=== PATIENT | female | born 1950 | race Caucasian/White ===

== ENCOUNTER 2016-11-24 03:14 | Emergency (ER) | payer OTHER ==
--- NOTE | 2016-11-24 04:54 | ED NURSING NOTES ---
Clinical Report - Nurses [facility] [address] [place] [address] 11/24/2016 3:15 [id number] Triage time 0319 AM. Chief Complaint: HEADACHE and VOMITING. Alert. No acute distress. SHARON COMA SCORE: Sharon Coma Scale: 15- eyes open spontaneously (4); best verbal response- oriented x 4 (5); best motor response- obeys commands (6). --03:23 Bandar Adrian R.N. 03:19 11/24/16. BP: 136/71. HR: 81. RR: 18. O2 saturation: 95%. Temp: 98.2 F (oral). Pain level now: 07/06. --03:23 Bandar Adrian R.N. Acuity: LEVEL 3. --03:23 Bandar Adrian R.N. Weight: 58.9 kg stated. Height/Length: 61 inches Per Patient. BMI: 24.5. --03:22 Bandar Adrian R.N. Medications Calcium tablet 1 tablet BID. Glucosamine Oral (Capsule 500 mg) 2 capsules, Daily. Paxil Oral 20 mg, daily (Pt stopped taking it due to financial problem.). Pt stopped taking Blood pressure pills.. Topiramate Oral 40, daily. Vitamin D3 Oral (Tablet 1000 unit) 1 tablet. Vitamin E Oral (Capsule 100 unit) 1 capsule. --10:42 Margot Antony R.N. Allergies No Known Drug Allergy. --10:41 Margot Antony R.N. History Arrived by private vehicle. Historian: patient. Accompanied by family. This started last night. ( Patient presents to the ED with symptoms of a right sided headache localized behind her right eye. Patient describes the pain as the worst headache of her entire life. Patient states that she has a history of stroke and has experienced migraines every single day of her life since the stroke. Patient states that she tried to take Excedrin migraine without relief of headache.). PAST MEDICAL HX: Headaches. Immunizations: up-to-date. SOCIAL HX: Smoker- current status unknown (no). Alcohol use. (no). History of drug use. (no). SELF HARM ASSESSMENT: A self harm assessment was performed. The patient answered "no" to the question "Have you recently felt down, depressed, or hopeless?", "Have you noticed less interest or pleasure in doing things?", "Do you have thoughts of harming or killing yourself?", "Are you here because you tried to hurt yourself?", "Have you ever tried to hurt yourself before today?", "Have you recently had thoughts about harming or killing others?" and "Do you have any dangerous items in your possession?". FALL RISK ASSESSMENT: Fall risk assessment completed. No fall risk identified. NUTRITIONAL RISK ASSESSMENT: The nutritional risk assessment revealed no deficiencies. FUNCTIONAL ASSESSMENT: Functional assessment: no impairments noted. LEARNING NEEDS ASSESSMENT: The learning needs assessment revealed no barriers. SKIN INTEGRITY ASSESSMENT: Skin integrity risk assessment completed. No skin integrity risk identified. --03:23 Bandar Adrian R.N. PROBLEMS: CVA - Cerebrovascular Accident. Migraine Headache. Hypertension. --03:23 Bandar Adrian R.N. ADDITIONAL SURGERIES: Hysterectomy. Laparoscopy. Laparotomy. --03:23 Bandar Adrian R.N. Interventions ID band on patient. To treatment room. --03:23 Bandar Adrian R.N. PHYSICAL ASSESSMENT To room via stretcher. GENERAL / NEURO / PSYCH: Alert. Oriented X 4. Appears in no acute distress. Speech within normal limits. ( right sided headache beginning around 0245 am). HEENT: No facial asymmetry noted. Pupils equal, round and reactive to light. RESPIRATORY: Respirations not labored. Breath sounds within normal limits. CVS: Capillary refill less than 2 seconds. GI / : The patient has had nausea. Emesis noted. Abdomen soft and nontender. SKIN: Skin is warm and dry. --03:25 Bandar Adrian R.N. NURSING PROGRESS NOTES Reassurance given. Call light placed in reach. Side rails up x 2. Bed placed in lowest position. Brakes of bed on. --03:25 Bandar Adrian R.N. 03:34 11/24/2016 Site #1 started via IV in the left forearm with an 18g angiocath; one attempt. Blood drawn: rainbow set. Labeled in the presence of the patient and held. Saline lock flushed with 10 mL saline. --03:34 Bandar Adrian R.N. 03:34 11/24/2016 Started IV Fluids IV NS (Saline); bolus of 1000 mL wide open via site #1 via IV pump. Allergies verified. IV patency established. IV site checked: no pain, redness, or swelling. IV flushed thoroughly pre- and post-medication administration. --03:34 Bandar Adrian R.N. 03:34 11/24/2016 Toradol IVP 30 mg given over 2 minute(s) via site #1. Allergies verified and confirmed 5 rights. IV patency established. IV site checked: no pain, redness, or swelling. IV flushed thoroughly pre- and post-medication administration. IVP given by RN. --03:34 Bandar Adrian R.N. 03:35 11/24/2016 Benadryl (DiphenhydrAMINE HCl) IVP 25 mg given over 2 minute(s) via site #1. Allergies verified, confirmed 5 rights and sedative warning given to the patient. IV patency established. IV site checked: no pain, redness, or swelling. IV flushed thoroughly pre- and post-medication administration. IVP given by RN. --03:35 Bandar Adrian R.N. 03:35 11/24/2016 Decadron IVP 10 mg given over 2 minute(s) via site #1. Allergies verified and confirmed 5 rights. IV patency established. IV site checked: no pain, redness, or swelling. IV flushed thoroughly pre- and post-medication administration. IVP given by RN. --03:36 Bandar Adrian R.N. 03:37 11/24/2016 PHENERGAN (Promethazine HCl) IVP 25 mg given over 5 minute(s) via site #1. Allergies verified and confirmed 5 rights. IV patency established. IV site checked: no pain, redness, or swelling. IV flushed thoroughly pre- and post-medication administration. IVP given by RN. --03:37 Bandar Adrian R.N. Reassurance given. Call light placed in reach. Side rails up x 2. --04:47 Bandar Adrian R.N. 04:46 11/24/16. BP: 127/67. HR: 82. RR: 16. O2 saturation: 100%. Pain level now: uncertain. Additional comments: patient is sleeping. --04:47 Bandar Adrian R.N. The patient is calm, resting quietly and sleeping. Overall patient status is improved- she states feels better. --06:47 Bandar Adrian R.N. 06:47 11/24/16. BP: 115/74. HR: 81. RR: 16. O2 saturation: 98%. Pain level now: 0/10. --06:47 Bandar Adrian R.N. DISPOSITION / DISCHARGE Condition at departure: improved. --05:42 Bandar Adrian R.N. 05:41 11/24/16. BP: 102/60 taken on the left arm, via an automated monitor, while lying. HR: 69. RR: 16. O2 saturation: 97%. Pain level now: 0/10. --05:42 Bandar Adrian R.N. 05:42 11/24/2016 Toradol IVP Response: no adverse reaction pain is gone now. Symptoms have improved the patient feels better. --05:42 Bandar Adrian R.N. 05:42 11/24/2016 Benadryl IVP Response: no adverse reaction pain is gone now. Symptoms have improved the patient feels better. --05:42 Bandar Adrian R.N. 05:42 11/24/2016 Decadron IVP Response: no adverse reaction pain is gone now. Symptoms have improved the patient feels better. --05:42 Bandar Adrian R.N. 05:43 11/24/2016 PHENERGAN IVP Response: no adverse reaction pain is gone now. Symptoms have improved the patient feels better. --05:43 Bandar Adrian R.N. Condition at departure: improved and stable. No learning barriers present. Discharge instructions provided and reviewed with the patient. Reviewed medication(s) side effects, precautions and dosing information. Prescription(s) given to the patient. Patient verbalized understanding. Written instructions provided in Polish. The patient was discharged by the physician. She was discharged home and accompanied by plumbing warehouse helper. She left the Emergency Department in a wheelchair and via private vehicle. Oil Filters Inspector driving. --10:40 Margot Antony R.N. 07:50 11/24/2016 Site #1 removed upon discharge. Catheter intact. Manual pressure and bandage applied. --10:41 Margot Antony R.N. Locked/Released at 11/24/2016 10:42 by Margot Antony R.N.
--- NOTE | 2016-11-24 04:54 | ED ORDER SUMMARY ---
..... Patient: GWEN ANTOINE OrderSheet [facility] VisitID: [id number] [address] [place] [address] 66y, F Registration Date/Time: 11/24/2016 ORDER SHEET Weight: 58.9 kg (stated) Allergies: No Known Drug Allergy GENERAL ORDERS: Pulse oximeter (03:11/24/2016 Elvis Chang) (3:39 HOShaughnessy R.N.) MEDICATION ORDERS: Phenergan IV 25 mg (HIGH ALERT MEDICATION, NOW) (03:11/24/2016 Elvis Chang) (3:37 HOShaughnessy R.N.) IV FLUIDS: IV NS : initial bolus 1000 mL (1000 mL/hr), then none - for X1 (NOW) (03:27 11/24/2016 Elvis Chang) (3:34 HOShaughnessy R.N.) Toradol IV 30 mg (NOW) (03:11/24/2016 Elvis Chang) (3:34 HOShaughnessy R.N.) Benadryl IV 25 mg (NOW) (03:11/24/2016 Elvis Chang) (3:35 HOShaughnessy R.N.) Decadron IV 10 mg (NOW) (03:11/24/2016 Elvis Chang) (3:36 HOShaughnessy R.N.) ORDER SHEET NOTES: [Electronically signed by Margot Antony R.N. (10:42 11/24/2016)] [Electronically signed by Rashid Pereira Dr. (01:13 12/01/2016)] [Electronically locked/signed by Margot Antony R.N. (10:42 11/24/2016)]
--- NOTE | 2016-11-24 04:54 | ED ORDER SUMMARY ---
..... Patient: GWEN ANTOINE OrderSheet [facility] VisitID: [id number] [address] [place] [address] 66y, F Registration Date/Time: 11/24/2016 ORDER SHEET Weight: 58.9 kg (stated) Allergies: No Known Drug Allergy GENERAL ORDERS: Pulse oximeter (03:11/24/2016 Elvis Chang) (3:39 HOShaughnessy R.N.) MEDICATION ORDERS: Phenergan IV 25 mg (HIGH ALERT MEDICATION, NOW) (03:11/24/2016 Elvis Chang) (3:37 HOShaughnessy R.N.) IV FLUIDS: IV NS : initial bolus 1000 mL (1000 mL/hr), then none - for X1 (NOW) (03:27 11/24/2016 Elvis Chang) (3:34 HOShaughnessy R.N.) Toradol IV 30 mg (NOW) (03:11/24/2016 Elvis Chang) (3:34 HOShaughnessy R.N.) Benadryl IV 25 mg (NOW) (03:11/24/2016 Elvis Chang) (3:35 HOShaughnessy R.N.) Decadron IV 10 mg (NOW) (03:11/24/2016 Elvis Chang) (3:36 HOShaughnessy R.N.) ORDER SHEET NOTES: [Electronically signed by Margot Antony R.N. (10:42 11/24/2016)] [Electronically signed by Rashid Pereira Dr. (01:13 12/01/2016)] [Electronically locked/signed by Margot Antony R.N. (10:42 11/24/2016)]
--- NOTE | 2016-11-24 04:54 | ED CLINICAL REPORT ---
Clinical Report - Physicians/Mid Levels [facility] [address] [place] [address] 11/24/2016 3:15 Patient: GWEN ANTOINE Arrived- By ambulance. Historian- patient. HISTORY OF PRESENT ILLNESS Is still present and worsening. Chief Complaint: HEADACHE. This started yesterday. It was gradual in onset and has been constant but is not gone now. Patient was last known well (yesterdays). Onset during rest. It is described as sharp. Located in the right temporal region and region of the right eye. No neck pain. Not located in the facial region. At its maximum, severity described as severe. When seen in the E.D., severity described as severe. Modifying factors: worsened by bright light; (usually OTC meds but that has not helped). Not worsened by noise. The patient has had nausea. No preceding symptoms, blurred vision, photophobia or vomiting. (states it got worse at 2:45 am today (>1 hour). Hx of CVA and right sided weakness. No new or worsening stroke symptoms.). No recent travel. Similar symptoms previously: None. ( hx of migraines but usually hurts all over). Recent medical care: Not recently seen/assessed. REVIEW OF SYSTEMS No fever, chest pain, difficulty breathing or skin rash. All systems otherwise negative, except as recorded above. PAST HISTORY See nurses notes. Medications: Calcium tablet 1 tablet BID. Glucosamine Oral (Capsule 500 mg) 2 capsules, Daily. Paxil Oral 20 mg, daily (Pt stopped taking it due to financial problem.). Pt stopped taking Blood pressure pills.. Topiramate Oral 40, daily. Vitamin D3 Oral (Tablet 1000 unit) 1 tablet. Vitamin E Oral (Capsule 100 unit) 1 capsule. Allergies: No Known Drug Allergy. SOCIAL HISTORY Never smoker. No alcohol use or drug use. No recent travel. Is a local resident. ADDITIONAL NOTES The nursing notes have been reviewed. PHYSICAL EXAM Vital Signs: 11/24/2016 03:19 BP: 136/71. HR: 81. RR: 18. O2 saturation: 95%. Temp: 98.2 F. Pain level now: 10/10. Blood pressure normal. Oxygen saturation normal. Appearance: Alert. Patient in mild distress. Eyes: Pupils equal, round and reactive to light. Eyes normal inspection. No conjunctival findings. (no papilledema. Normal retinal vasculature. Pupils are equally round and reactive to light at 3 mm. Extraocular ocular movements are intact without discomfort. No consensual photophobia). ENT: Ears normal. Nose normal. Pharynx normal. Neck: Normal inspection. Neck supple. No meningeal signs. CVS: Normal heart rate and rhythm. Heart sounds normal. Pulses normal. Respiratory: No respiratory distress. Breath sounds normal. Abdomen: Soft and nontender. No organomegaly. Skin: Skin warm and dry. Normal skin color. No rash. Normal skin turgor. Extremities: Extremities exhibit normal ROM. No lower extremity edema. Neuro: Oriented X 3. Alert. Mood/affect normal. Speech normal. Cranial nerves normal (as tested). No cerebellar findings. No motor deficit. No sensory deficit. Reflexes normal. PROGRESS AND PROCEDURES Course of Care: the patient is a pleasant 66-year-old female presenting for eval show right-sided headache. Patient has been having the headache for the past day. Patient reports worsening at around 245 this morning. Symptoms had worsened over the course of greater than 1 hour. Do not the patient has subarachnoid hemorrhage or more concerning symptoms. Evaluation does not show signs of increased intracranial pressure. exam is also not consistent with meningitis. No fever and no nuchal rigidity. Patient will be treated conservatively at this point in time with medications for her headache. Patient is agreeable to the treatment plan. medications have been provided. Patient reports significant improvement with her pain. I discussion with patient in regards to her workup here in the emergency department as well as diagnosis, home care, follow-up, and return precautions. All questions answered. The patient expressed understanding of these instructions and was agreeable to them. Do not fill patient is having a subarachnoid hemorrhage, meningitis, increased intracranial pressure, or CVA. Do not feel patient needs be admitted to the hospital or require further emergency department workup/evaluation. Disposition: Discharged. Condition: good. CLINICAL IMPRESSION Acute headache (acute right temporal/posterior orbital). INSTRUCTIONS Warnings: GENERAL WARNINGS: Return or contact your physician immediately if your condition worsens or changes unexpectedly, if not improving as expected, or if other problems arise. SPECIFICALLY, return if you develop fever, vomiting, numbness, weakness, difficulty thinking, visual disturbances, fainting or extreme fatigue. Prescription Medications: Zofran (orally disintegrating tablets) 4 mg: take 1 orally every 8 hours as needed for nausea and vomiting. Dispense ten (10). No refill. Substitution is permissible. Fioricet: take 1 orally every 8 hours as needed for pain or headache. Dispense twenty (20). No refills. Substitution is permissible. Follow-up: Return to the emergency department as needed. Follow up with your doctor in three days. Reason for referral: recheck today's concerns. Summary of care provided to patient via paper. Screening today revealed the patient's blood pressure to be in the normal range. The patient should follow up with a primary care provider for blood pressure management. Understanding of the discharge instructions verbalized by patient. (Electronically signed by Rashid Pereira Dr. 12/01/2016 1:13)
--- NOTE | 2016-12-01 01:13 | ED MAR SUMMARY ---
..... Medication Administration Record [facility] [address] [place] [address] Patient: GWEN ANTOINE Visit ID: [id number] 66y, F Weight: 58.9 kg Height/Length: 61 in BMI: 24.5 ALLERGIES: No Known Drug Allergy Start 03:34 11/24/2016 Bandar Adrian R.N. Medication Administered: IV NS (SALINE), Dose: IV Fluids, Bolus: 1000 mL wide open, Site: #1 left forearm. Medication Ordered: IV NS : initial bolus 1000 mL (1000 mL/hr), then none - for X1 (NOW). Given 03:34 11/24/2016 Bandar Adrian R.N. Medication Administered: TORADOL [IVP], Dose: 30 mg IVP over 2 minute(s), Site: #1 left forearm. Medication Ordered: Toradol IV 30 mg (NOW). Given 03:11/24/2016 Bandar Adrian R.N. Medication Administered: BENADRYL [IVP] (DIPHENHYDRAMINE HCL), Dose: 25 mg IVP over 2 minute(s), Site: #1 left forearm. Medication Ordered: Benadryl IV 25 mg (NOW). Given 03:11/24/2016 Banadr Adrian R.N. Medication Administered: DECADRON [IVP], Dose: 10 mg IVP over 2 minute(s), Site: #1 left forearm. Medication Ordered: Decadron IV 10 mg (NOW). Given 03:37 11/24/2016 Bandar Adrian R.N. Medication Administered: PHENERGAN [IVP] (PROMETHAZINE HCL), Dose: 25 mg IVP over 5 minute(s), Site: #1 left forearm. Medication Ordered: Phenergan IV 25 mg (HIGH ALERT MEDICATION, NOW).
--- NOTE | 2016-12-01 01:13 | ED DISCHARGE INSTRUCTIONS ---
Patient: GWEN ANTOINE General Instructions [facility] VisitID: [id number] [address] [place] [address] 66y, F Registration Date/Time: 11/24/2016 Acute headache (acute right temporal/posterior orbital). INSTRUCTIONS Warnings: GENERAL WARNINGS: Return or contact your physician immediately if your condition worsens or changes unexpectedly, if not improving as expected, or if other problems arise. SPECIFICALLY, return if you develop fever, vomiting, numbness, weakness, difficulty thinking, visual disturbances, fainting or extreme fatigue. Prescription Medications: Zofran (orally disintegrating tablets) 4 mg: take 1 orally every 8 hours as needed for nausea and vomiting. Dispense ten (10). No refill. Substitution is permissible. Fioricet: take 1 orally every 8 hours as needed for pain or headache. Dispense twenty (20). No refills. Substitution is permissible. Follow-up: Return to the emergency department as needed. Follow up with your doctor in three days. Reason for referral: recheck today's concerns. Summary of care provided to patient via paper. Screening today revealed the patient's blood pressure to be in the normal range. The patient should follow up with a primary care provider for blood pressure management. Understanding of the discharge instructions verbalized by patient. ADDITIONAL INFORMATION Headache [Unspecified] The cause of your headache today is not clear, but it does not appear to be the sign of any serious illness. Under stress, some people tense the muscles of their shoulder, neck and scalp without knowing it. If this condition lasts long enough, a TENSION HEADACHE can occur. A MIGRAINE HEADACHE is caused by changes in blood flow to the brain. A migraine attack may be triggered by emotional stress, hormone changes during the menstrual cycle, oral contraceptives, alcohol use, certain foods containing tyramine, eye strain, weather changes, missing meals, lack of sleep or oversleeping. Other causes of headache include a viral illness with high fever, head injury with concussion, sinus, ear or throat infection, dental pain and TMJ (jaw joint) pain. More serious but less common causes of headache include stroke, brain hemorrhage, brain tumor, meningitis and encephalitis. Home Care: If you were given pain medicine for this headache, do not drive yourself home. Arrange for a ride, instead. When you get home, try to sleep. You should feel much better when you wake up. Apply heat to the back of your neck to relieve neck muscle spasm. Migraine headaches may respond best to an ice pack on the forehead or at the base of the skull. If you are having nausea or vomiting, follow a light diet until your headache is relieved. If you have a migraine type headache, use sunglasses when in the daylight or around bright indoor lighting until symptoms improve. Bright glaring light can worsen this kind of headache. Follow Up with your doctor if the headache is not better within the next 24 hours. If you have frequent headaches you should discuss a treatment plan with your primary care doctor. By being aware of the earliest signs of headache, and starting treatment right away, you may be able to stop the pain yourself. Get Prompt Medical Attention if any of the following occur: Worsening of your head pain or no improvement within 24 hours Repeated vomiting (unable to keep liquids down) Fever of 100.4F (38C) or higher, or as directed by your healthcare provider Stiff neck Extreme drowsiness, confusion or fainting Dizziness, vertigo (dizziness with spinning sensation) Weakness of an arm or leg or one side of the face Difficulty with speech or vision Ondansetron Oral disintegrating tablet What is this medicine? ONDANSETRON (on ISABEL se mehdi) is used to treat nausea and vomiting caused by chemotherapy. It is also used to prevent or treat nausea and vomiting after surgery. How should I use this medicine? These tablets are made to dissolve in the mouth. Do not try to push the tablet through the foil backing. With dry hands, peel away the foil backing and gently remove the tablet. Place the tablet in the mouth and allow it to dissolve, then swallow. While you may take these tablets with water, it is not necessary to do so. Talk to your cuprous chloride operator regarding the use of this medicine in children. Special care may be needed. What side effects may I notice from receiving this medicine? Side effects that you should report to your doctor or health animal care assistant as soon as possible: allergic reactions like skin rash, itching or hives, swelling of the face, lips, or tongue breathing problems dizziness fast or irregular heartbeat feeling faint or lightheaded, falls fever and chills swelling of the hands and feet tightness in the chest Side effects that usually do not require medical attention (report to your doctor or health animal care assistant if they continue or are bothersome): constipation or diarrhea headache What may interact with this medicine? Do not take this medicine with any of the following medications: -apomorphine -cisapride -dofetilide -dronedarone -pimozide -thioridazine -ziprasidone This medicine may also interact with the following medications: -carbamazepine -phenytoin -rifampicin -tramadol -other medicines that prolong the QT interval (cause an abnormal heart rhythm) What if I miss a dose? If you miss a dose, take it as soon as you can. If it is almost time for your next dose, take only that dose. Do not take double or extra doses. Where should I keep my medicine? Keep out of the reach of children. Store between 2 and 30 degrees C (36 and 86 degrees F). Throw away any unused medicine after the expiration date. What should I tell my health care provider before I take this medicine? They need to know if you have any of these conditions: heart disease history of irregular heartbeat liver disease low levels of magnesium or potassium in the blood an unusual or allergic reaction to ondansetron, granisetron, other medicines, foods, dyes, or preservatives or trying to get breast-feeding What should I watch for while using this medicine? Check with your doctor or health animal care assistant as soon as you can if you have any sign of an allergic reaction. Butalbital, Acetaminophen, Caffeine Oral tablet What is this medicine? ACETAMINOPHEN; BUTALBITAL; CAFFEINE (a set a FENG alan fen; byoo ED bi ed; KAF een) is a pain reliever. It is used to treat tension headaches. How should I use this medicine? Take this medicine by mouth with a full glass of water. Follow the directions on the prescription label. If the medicine upsets your stomach, take the medicine with food or milk. Do not take more than you are told to take. Talk to your cuprous chloride operator regarding the use of this medicine in children. Special care may be needed. What side effects may I notice from receiving this medicine? Side effects that you should report to your doctor or health animal care assistant as soon as possible: allergic reactions like skin rash, itching or hives, swelling of the face, lips, or tongue breathing problems confusion feeling faint or lightheaded, falls redness, blistering, peeling or loosening of the skin, including inside the mouth seizure stomach pain yellowing of the eyes or skin Side effects that usually do not require medical attention (report to your doctor or health animal care assistant if they continue or are bothersome): constipation nausea, vomiting What may interact with this medicine? alcohol or medicines that contain alcohol antidepressants, especially MAOIs like isocarboxazid, phenelzine, tranylcypromine, and selegiline antihistamines benzodiazepines carbamazepine isoniazid medicines for pain like pentazocine, buprenorphine, butorphanol, nalbuphine, tramadol, and propoxyphene muscle relaxants naltrexone phenobarbital, phenytoin, and fosphenytoin phenothiazines like perphenazine, thioridazine, chlorpromazine, mesoridazine, fluphenazine, prochlorperazine, promazine, and trifluoperazine voriconazole What if I miss a dose? If you miss a dose, take it as soon as you can. If it is almost time for your next dose, take only that dose. Do not take double or extra doses. Where should I keep my medicine? Keep out of the reach of children. This medicine can be abused. Keep your medicine in a safe place to protect it from theft. Do not share this medicine with anyone. Selling or giving away this medicine is dangerous and against the law. Store at room temperature between 15 and 30 degrees C (59 and 86 degrees F). Keep container tightly closed. Protect from light. Throw away any unused medicine after the expiration date. What should I tell my health care provider before I take this medicine? They need to know if you have any of these conditions: drink more than 3 alcohol-containing drinks per day drug abuse or addiction heart or circulation problems kidney disease or problems going to the bathroom liver disease lung disease, asthma, or breathing problems porphyria an unusual or allergic reaction to acetaminophen, butalbital or other barbiturates, caffeine, other medicines, foods, dyes, or preservatives or trying to get breast-feeding What should I watch for while using this medicine? Tell your doctor or health animal care assistant if your pain does not go away, if it gets worse, or if you have new or a different type of pain. You may develop tolerance to the medicine. Tolerance means that you will need a higher dose of the medicine for pain relief. Tolerance is normal and is expected if you take the medicine for a long time. Do not suddenly stop taking your medicine because you may develop a severe reaction. Your body becomes used to the medicine. This does NOT mean you are addicted. Addiction is a behavior related to getting and using a drug for a non-medical reason. If you have pain, you have a medical reason to take pain medicine. Your doctor will tell you how much medicine to take. If your doctor wants you to stop the medicine, the dose will be slowly lowered over time to avoid any side effects. You may get drowsy or dizzy when you first start taking the medicine or change doses. Do not drive, use machinery, or do anything that may be dangerous until you know how the medicine affects you. Stand or sit up slowly. Do not take other medicines that contain acetaminophen with this medicine. Always read labels carefully. If you have questions, ask your doctor or pharmacist. If you take too much acetaminophen get medical help right away. Too much acetaminophen can be very dangerous and cause liver damage. Even if you do not have symptoms, it is important to get help right away. You have been given the following additional information: Headache, Unspecified Ondansetron Oral disintegrating tablet Butalbital, Acetaminophen, Caffeine Oral tablet (Electronically signed by Rashid Pereira Dr. 12/01/2016 1:13)
--- NOTE | 2016-12-01 01:13 | ED MED RECONCILIATION SUMMARY ---
Patient: GWEN ANTOINE Medication Reconciliation Report [facility] VisitID: [id number] [address] [place] [address] 66y, F Registration Date/Time: 11/24/2016 Weight: 58.9 kg Height/Length: 61 in. BMI: 24.5 ALLERGIES: No Known Drug Allergy The patient's Home Medications are listed below: THE FOLLOWING MEDICATIONS NEED TO BE RECONCILED: Calcium tablet 1 tablet BID Glucosamine Oral (500 mg) 2 capsules, Daily Paxil Oral 20 mg, daily, Pt stopped taking it due to financial problem. Pt stopped taking Blood pressure pills. Topiramate Oral 40, daily Vitamin D3 Oral (1000 unit) 1 tablet Vitamin E Oral (100 unit) 1 capsule The source(s) of the original Home Medication information: Not obtained. The following Medications were given to the patient in the Emergency Department: IV NS IV Fluids bolus 1000 mL wide open, administered: 11/24/2016 3:34:00 AM Toradol [IVP] IVP 30 mg, administered: 11/24/2016 3:34:00 AM Benadryl [IVP] IVP 25 mg, administered: 11/24/2016 3:35:00 AM Decadron [IVP] IVP 10 mg, administered: 11/24/2016 3:35:00 AM PHENERGAN [IVP] IVP 25 mg, administered: 11/24/2016 3:37:00 AM The following Medications were prescribed to the patient: Zofran (orally disintegrating tablets) 4 mg: take 1 orally every 8 hours as needed for nausea and vomiting. Dispense ten (10). No refill. Substitution is permissible. -- Rashid Pereira Dr. Fioricet: take 1 orally every 8 hours as needed for pain or headache. Dispense twenty (20). No refills. Substitution is permissible. -- Rashid Pereira Dr.
--- NOTE | 2016-12-01 01:13 | ED MAR SUMMARY ---
..... Medication Administration Record [facility] [address] [place] [address] Patient: GWEN ANTOINE Visit ID: [id number] 66y, F Weight: 58.9 kg Height/Length: 61 in BMI: 24.5 ALLERGIES: No Known Drug Allergy Start 03:34 11/24/2016 Bandar Adrian R.N. Medication Administered: IV NS (SALINE), Dose: IV Fluids, Bolus: 1000 mL wide open, Site: #1 left forearm. Medication Ordered: IV NS : initial bolus 1000 mL (1000 mL/hr), then none - for X1 (NOW). Given 03:34 11/24/2016 Bandar Adrian R.N. Medication Administered: TORADOL [IVP], Dose: 30 mg IVP over 2 minute(s), Site: #1 left forearm. Medication Ordered: Toradol IV 30 mg (NOW). Given 03:11/24/2016 Bandar Adrian R.N. Medication Administered: BENADRYL [IVP] (DIPHENHYDRAMINE HCL), Dose: 25 mg IVP over 2 minute(s), Site: #1 left forearm. Medication Ordered: Benadryl IV 25 mg (NOW). Given 03:11/24/2016 Bandar Adrian R.N. Medication Administered: DECADRON [IVP], Dose: 10 mg IVP over 2 minute(s), Site: #1 left forearm. Medication Ordered: Decadron IV 10 mg (NOW). Given 03:37 11/24/2016 Bandar Adrian R.N. Medication Administered: PHENERGAN [IVP] (PROMETHAZINE HCL), Dose: 25 mg IVP over 5 minute(s), Site: #1 left forearm. Medication Ordered: Phenergan IV 25 mg (HIGH ALERT MEDICATION, NOW).
--- NOTE | 2016-12-01 01:13 | ED MED RECONCILIATION SUMMARY ---
Patient: GWEN ANTOINE Medication Reconciliation Report [facility] VisitID: [id number] [address] [place] [address] 66y, F Registration Date/Time: 11/24/2016 Weight: 58.9 kg Height/Length: 61 in. BMI: 24.5 ALLERGIES: No Known Drug Allergy The patient's Home Medications are listed below: THE FOLLOWING MEDICATIONS NEED TO BE RECONCILED: Calcium tablet 1 tablet BID Glucosamine Oral (500 mg) 2 capsules, Daily Paxil Oral 20 mg, daily, Pt stopped taking it due to financial problem. Pt stopped taking Blood pressure pills. Topiramate Oral 40, daily Vitamin D3 Oral (1000 unit) 1 tablet Vitamin E Oral (100 unit) 1 capsule The source(s) of the original Home Medication information: Not obtained. The following Medications were given to the patient in the Emergency Department: IV NS IV Fluids bolus 1000 mL wide open, administered: 11/24/2016 3:34:00 AM Toradol [IVP] IVP 30 mg, administered: 11/24/2016 3:34:00 AM Benadryl [IVP] IVP 25 mg, administered: 11/24/2016 3:35:00 AM Decadron [IVP] IVP 10 mg, administered: 11/24/2016 3:35:00 AM PHENERGAN [IVP] IVP 25 mg, administered: 11/24/2016 3:37:00 AM The following Medications were prescribed to the patient: Zofran (orally disintegrating tablets) 4 mg: take 1 orally every 8 hours as needed for nausea and vomiting. Dispense ten (10). No refill. Substitution is permissible. -- Rashid Pereira Dr. Fioricet: take 1 orally every 8 hours as needed for pain or headache. Dispense twenty (20). No refills. Substitution is permissible. -- Rashid Pereira Dr.
== END 2016-11-24 08:00 | disposition home or self-care (01) ==
LOC: ED SRH 03:14
DX: R51 Headache (principal); I69.351 Hemiplegia and hemiparesis following cerebral infarction affecting right dominant side; I10 Essential (primary) hypertension

== ENCOUNTER 2017-01-15 14:14 | Emergency (ER) | payer OTHER ==
--- NOTE | 2017-01-15 14:37 | DIAGNOSTIC IMAGING REPORT ---
PROCEDURE: CT HEAD WITHOUT CONTRAST INDICATION: Right sided headache and slurred speech, initial encounter TECHNIQUE: Noncontrast axial images with sagittal and coronal reformations. COMPARISON: None. FINDINGS: Normal sulci and ventricular system. Old left carrington radiata infarct extending inferiorly into the left internal capsule posterior limb and left basal ganglia. No evidence of an acute CVA, hemorrhage, mass or midline shift. Mild right maxillary sinus disease. Mastoids are clear. IMPRESSION: 1. No acute intracranial abnormality 2. 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 Findings discussed with Dr. Richards at 02:33 p.m.[facility] Standard Time
--- NOTE | 2017-01-15 14:37 | DIAGNOSTIC IMAGING REPORT ---
PROCEDURE: CT HEAD WITHOUT CONTRAST INDICATION: Right sided headache and slurred speech, initial encounter TECHNIQUE: Noncontrast axial images with sagittal and coronal reformations. COMPARISON: None. FINDINGS: Normal sulci and ventricular system. Old left carrington radiata infarct extending inferiorly into the left internal capsule posterior limb and left basal ganglia. No evidence of an acute CVA, hemorrhage, mass or midline shift. Mild right maxillary sinus disease. Mastoids are clear. IMPRESSION: 1. No acute intracranial abnormality 2. 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 Findings discussed with Dr. Richards at 02:33 p.m.[facility] Standard Time
--- NOTE | 2017-01-15 16:01 | DIAGNOSTIC IMAGING REPORT ---
PROCEDURE: XR CHEST 1 VIEW INDICATION: CVA CA WITH METS TECHNIQUE: Portable AP view 02:35 p.m. COMPARISON: CT thorax 08/08/2014. FINDINGS: Previously noted right upper lobe lung mass is no longer present. Lungs are clear. Heart and mediastinum are normal. Thorax is normal. IMPRESSION: 1. Negative chest.
--- NOTE | 2017-01-15 16:23 | ED NURSING NOTES ---
Clinical Report - Nurses [facility] [address] [place] [address] 01/15/2017 14:14 [id number] TRI[facility] Triage time 1415. Acuity: LEVEL 2. Chief Complaint: IMPAIRED SPEECH and "FELT STRANGE". Alert. SHARON COMA SCORE: Sharon Coma Scale: 15- eyes open spontaneously (4); best verbal response- oriented x 4 (5); best motor response- obeys commands (6). --14:33 Shahla Hu 14:19 01/15/17. BP: 119/54. HR: 77. RR: 16. O2 saturation: 98%. Temp: 97.6 F. --14:33 Shahla Hu. Weight: 52.6 kg. Height/Length: 62 inches. BMI: 21.2. --14:19 Shahla Hu. Medications Aspirin Oral. --14:21 Shahla Hu Atorvastatin Calcium Oral. --14:21 Shahla Hu Lisinopril Oral. --14:21 Shahla Hu PARoxetine HCl Oral. --14:21 Shahla Hu FentaNYL Transdermal. --14:22 Shahla Hu Haloperidol Oral. --14:22 Shahla Hu Hyoscyamine Sulfate Oral. --14:22 Shahla Hu LORazepam Oral. --14:22 Shahla Hu OxyCODONE HCl Oral. --14:22 Shahla Hu. Allergies No Known Drug Allergy. None. --14:24 Shahla Hu. History Historian: EMS. This started 1345. Onset. (1345). Treatment QUALITY CONTROL MICROBIOLOGIST: None. PAST MEDICAL HX: Stroke. --14:33 Shahla Hu. PROBLEMS: Depression. Hyperlipidemia. Lung Cancer. Headache. CVA - Cerebrovascular Accident. Migraine Headache. Hypertension. --14:24 Shahla Hu. Interventions ID band on patient. Protocol initiated. To treatment room. --14:33 Shahla Hu. PHYSICAL ASSESSMENT To room via stretcher. Patient gowned. GENERAL / NEURO / PSYCH: Appears anxious. The patient is disoriented to person, place, time and situation. Mood/affect abnormal (anxious). Moves extremities with decreased movement of the right upper and lower extremity. Strength is unequal. The patient has had weakness. ( hx previous cva with right sided weakness). HEENT: Facial weakness (old). RESPIRATORY: Breath sounds within normal limits. Respirations not labored. CVS: Normal sinus rhythm noted. Capillary refill less than 2 seconds. SKIN: Skin is intact, warm and dry. --14:34 Shahla Hu. NURSING PROGRESS NOTES 14:35 01/15/2017 Site #1 started prior to arrival by EMS via IV in the left antecubital space with an 18g angiocath. --14:35 Shahla Hu Finger stick glucose: 118. Reassurance given. Side rails up x 2. Bed placed in lowest position. Brakes of bed on. Patient waiting for results. --14:49 Shahla Hu 15:36 01/15/2017 Zofran (Ondansetron HCl) IVP 4 mg given. via site #1. Allergies verified and confirmed 5 rights. IV patency established. IV site checked: no pain, redness, or swelling. IV flushed thoroughly pre- and post-medication administration. IVP given by RN. --15:41 Shahla Hu 15:36 01/15/2017 Dilaudid (HYDROmorphone HCl PF) IVP 0.5 mg given. via site #1. Allergies verified, confirmed 5 rights and sedative warning given to the patient. IV patency established. IV site checked: no pain, redness, or swelling. IV flushed thoroughly pre- and post-medication administration. IVP given by RN. --15:41 Shahla Hu Reassessment after medication administered. She reports no complaints, she is sleeping and she has had no adverse reaction. Overall patient status is improved- she states feels better. --15:52 Shahla Hu 15:51 01/15/17. BP: 103/62. HR: 90. RR: 20. O2 saturation: 100%. Pain level now 4/10. --15:52 Shahla Hu 15:15 01/15/17. BP: 113/59. HR: 90. RR: 24. O2 saturation: 100%. --15:53 Shahla Hu EKG time: (14:43). EKG was performed by a tech and shown to the ED physician. --15:58 Bri Palacios 16:50 01/15/2017 Reglan (Metoclopramide HCl) IVP 10 mg given. via site #1. Allergies verified and confirmed 5 rights. IV patency established. IV site checked: no pain, redness, or swelling. IV flushed thoroughly pre- and post-medication administration. IVP given by RN. --16:50 Shahla Hu. DISPOSITION / DISCHARGE 17:28 01/15/2017 Site #1 removed upon discharge. Catheter intact. Pressure dressing applied. --17:28 Shahla Hu Departure time: 172. Condition at departure: improved and stable. No learning barriers present. Discharge instructions provided and reviewed with the patient. Reviewed medication(s). Patient verbalized understanding. Written instructions provided in Dutch. The patient was discharged by the physician. She was discharged home and unaccompanied at time of discharge taxi. She left the Emergency Department ambulatory and via taxi. Patient driving. --17:43 Shahla Hu 17:28 01/15/17. BP: 128/77. HR: 88. RR: 16. O2 saturation: 99%. Pain level now 8/10. --17:43 Shahla Hu Departure time: 1723. --17:43 Shahla Hu. Locked/Released at 01/15/2017 19:13 by Shahla Hu,
--- NOTE | 2017-01-15 16:23 | ED NURSING NOTES ---
Clinical Report - Nurses [facility] [address] [place] [address] 01/15/2017 14:14 [id number] Triage time 1415. Acuity: LEVEL 2. Chief Complaint: IMPAIRED SPEECH and "FELT STRANGE". Alert. SHARON COMA SCORE: Sharon Coma Scale: 15- eyes open spontaneously (4); best verbal response- oriented x 4 (5); best motor response- obeys commands (6). --14:33 Shahla Hu 14:19 01/15/17. BP: 119/54. HR: 77. RR: 16. O2 saturation: 98%. Temp: 97.6 F. --14:33 Shahla Hu. Weight: 52.6 kg. Height/Length: 62 inches. BMI: 21.2. --14:19 Shahla Hu. Medications Aspirin Oral. --14:21 Shahla Hu Atorvastatin Calcium Oral. --14:21 Shahla Hu Lisinopril Oral. --14:21 Shahla Hu PARoxetine HCl Oral. --14:21 Shahla Hu FentaNYL Transdermal. --14:22 Shahla Hu Haloperidol Oral. --14:22 Shahla Hu Hyoscyamine Sulfate Oral. --14:22 Shahla Hu LORazepam Oral. --14:22 Shahla Hu OxyCODONE HCl Oral. --14:22 Shahla Hu. Allergies No Known Drug Allergy. None. --14:24 Shahla Hu. History Historian: EMS. This started 1345. Onset. (1345). 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 PAST MEDICAL HX: Stroke. --14:33 Shahla Hu. PROBLEMS: Depression. Hyperlipidemia. Lung Cancer. Headache. CVA - Cerebrovascular Accident. Migraine Headache. Hypertension. --14:24 Shahla Hu. Interventions ID band on patient. Protocol initiated. To treatment room. --14:33 Shahla Hu. PHYSICAL ASSESSMENT To room via stretcher. Patient gowned. GENERAL / NEURO / PSYCH: Appears anxious. The patient is disoriented to person, place, time and situation. Mood/affect abnormal (anxious). Moves extremities with decreased movement of the right upper and lower extremity. Strength is unequal. The patient has had weakness. ( hx previous cva with right sided weakness). HEENT: Facial weakness (old). RESPIRATORY: Breath sounds within normal limits. Respirations not labored. CVS: Normal sinus rhythm noted. Capillary refill less than 2 seconds. SKIN: Skin is intact, warm and dry. --14:34 Shahla Hu. NURSING PROGRESS NOTES 14:35 01/15/2017 Site #1 started prior to arrival by EMS via IV in the left antecubital space with an 18g angiocath. --14:35 Shahla Hu Finger stick glucose: 118. Reassurance given. Side rails up x 2. Bed placed in lowest position. Brakes of bed on. Patient waiting for results. --14:49 Shahla Hu 15:36 01/15/2017 Zofran (Ondansetron HCl) IVP 4 mg given. via site #1. Allergies verified and confirmed 5 rights. IV patency established. IV site checked: no pain, redness, or swelling. IV flushed thoroughly pre- and post-medication administration. IVP given by RN. --15:41 Shahla Hu 15:36 01/15/2017 Dilaudid (HYDROmorphone HCl PF) IVP 0.5 mg given. via site #1. Allergies verified, confirmed 5 rights and sedative warning given to the patient. IV patency established. IV site checked: no pain, redness, or swelling. IV flushed thoroughly pre- and post-medication administration. IVP given by RN. --15:41 Shahla Hu Reassessment after medication administered. She reports no complaints, she is sleeping and she has had no adverse reaction. Overall patient status is improved- she states feels better. --15:52 Shahla Hu 15:51 01/15/17. BP: 103/62. HR: 90. RR: 20. O2 saturation: 100%. Pain level now 4/10. --15:52 Shahla Hu 15:15 01/15/17. BP: 113/59. HR: 90. RR: 24. O2 saturation: 100%. --15:53 Shahla Hu EKG time: (14:43). EKG was performed by a tech and shown to the ED physician. --15:58 Bri Palacios 16:50 01/15/2017 Reglan (Metoclopramide HCl) IVP 10 mg given. via site #1. Allergies verified and confirmed 5 rights. IV patency established. IV site checked: no pain, redness, or swelling. IV flushed thoroughly pre- and post-medication administration. IVP given by RN. --16:50 Shahla Hu. DISPOSITION / DISCHARGE 17:28 01/15/2017 Site #1 removed upon discharge. Catheter intact. Pressure dressing applied. --17:28 Shahla Hu Departure time: 172. Condition at departure: improved and stable. No learning barriers present. Discharge instructions provided and reviewed with the patient. Reviewed medication(s). Patient verbalized understanding. Written instructions provided in French. The patient was discharged by the physician. She was discharged home and unaccompanied at time of discharge taxi. She left the Emergency Department ambulatory and via taxi. Patient driving. --17:43 Shahla Hu 17:28 01/15/17. BP: 128/77. HR: 88. RR: 16. O2 saturation: 99%. Pain level now 8/10. --17:43 Shahla Hu Departure time: 1723. --17:43 Shahla Hu. Locked/Released at 01/15/2017 19:13 by Shahla Hu,
--- NOTE | 2017-01-15 16:23 | ED ORDER SUMMARY ---
..... Patient: GWEN ANTOINE OrderSheet [facility] VisitID: [id number] [address] [place] [address] 66y, F Registration Date/Time: 01/15/2017 ORDER SHEET Weight: 52.6 kg Allergies: No Known Drug Allergy, None GENERAL ORDERS: CT Head wo Cont Urgent (14:17 01/15/2017 Chadd EVANS) (Ack 14:21 Dominga) (16:29 MCamproseann) Chest 1V Urgent (14:17 01/15/2017 Chadd EVANS) (Ack 14:21 Dominga) (16:29 MCamproseann) Cardiac Panel Stat (14:18 01/15/2017 Chadd EVANS) (Ack 14:21 Dominga) UA-Culture if indicated Urgent (14:18 01/15/2017 Chadd EVANS) (Ack 14:21 Dominga) (16:50 EBonmarquis) Urine Drug Screen Urgent (14:18 01/15/2017 Chadd EVANS) (Ack 14:21 Dominga) (16:50 EBonham) EKG - ER Stat (14:01/15/2017 Chadd EVANS) (Ack 14:21 Dominga) (14:[facility] MEDICATION ORDERS: IV FLUIDS: IV Saline Lock (14:18 01/15/2017 Chadd EVANS) (14:50 EBonham) Dilaudid IV 0.5 mg (NOW) (15:05 01/15/2017 Chadd EVANS) (15:41 EBalbino) Zofran IV 4 mg (NOW) (15:05 01/15/2017 Chadd EVANS) (15:41 EBonmarquis) Reglan IV 10 mg (NOW) (16:30 01/15/2017 Chadd EVANS) (Ack 16:37 LWhalen R.N.) (16:50 Brat) ORDER SHEET NOTES: [Electronically signed by Shahla Hu (19:13 01/15/2017)] [Electronically signed by Kaleb Richards MD (15:04 01/21/2017)] [Electronically locked/signed by Shahla Hu (19:13 01/15/2017)]
--- NOTE | 2017-01-15 16:23 | ED ORDER SUMMARY ---
..... Patient: GWEN ANTOINE OrderSheet [facility] VisitID: [id number] [address] [place] [address] 66y, F Registration Date/Time: 01/15/2017 ORDER SHEET Weight: 52.6 kg Allergies: No Known Drug Allergy, None GENERAL ORDERS: CT Head wo Cont Urgent (14:17 01/15/2017 Chadd EVANS) (Ack 14:21 Dominga) (16:29 MCamproseann) Chest 1V Urgent (14:17 01/15/2017 Chadd EVANS) (Ack 14:21 Dominga) (16:29 MCamproseann) Cardiac Panel Stat (14:18 01/15/2017 Chadd EVANS) (Ack 14:21 Dominga) UA-Culture if indicated Urgent (14:18 01/15/2017 Chadd EVANS) (Ack 14:21 Dominga) (16:50 EBonmarquis) Urine Drug Screen Urgent (14:18 01/15/2017 Chadd EVANS) (Ack 14:21 Dominga) (16:50 EBonham) EKG - ER Stat (14:01/15/2017 Chadd EVANS) (Ack 14:21 Dominga) (14:47 [facility] MEDICATION ORDERS: IV FLUIDS: IV Saline Lock (14:18 01/15/2017 Chadd EVANS) (14:50 EBonham) Dilaudid IV 0.5 mg (NOW) (15:05 01/15/2017 Chadd EVANS) (15:41 EBalbino) Zofran IV 4 mg (NOW) (15:05 01/15/2017 Chadd EVANS) (15:41 EBonmarquis) Reglan IV 10 mg (NOW) (16:30 01/15/2017 Chadd EVANS) (Ack 16:37 LWhalen R.N.) (16:50 Bart) ORDER SHEET NOTES: [Electronically signed by Shahla Hu (19:13 01/15/2017)] [Electronically signed by Kaleb Richards MD (15:04 01/21/2017)] [Electronically locked/signed by Shahla Hu (19:13 01/15/2017)]
--- NOTE | 2017-01-15 16:23 | ED CLINICAL REPORT ---
Clinical Report - Physicians/Mid Levels [facility] [address] [place] [address] 01/15/2017 14:14 Patient: GWEN ANTOINE Time Seen: 14:16 Jan 15 2017. Arrived- By ambulance. Historian- patient and EMS personnel. CPT: ER phys charges level 4 plus (#[id number]). EKG interpretation (#[id number]). HISTORY OF PRESENT ILLNESS Chief Complaint: IMPAIRED SPEECH. WEST: CODE STROKE CALLED. This started just prior to arrival and is now gone. No weakness, numbness, tingling, visual disturbance or impaired swallowing. No recent fall. She has had difficulty with speech. No difficulty walking. (observed by caretakers who sent patient to the ER.). At its maximum deficit described as moderate. When seen in the E.D., it was gone. No dizziness or altered mental status. Usually is alert and oriented X3 and has normal mobility. Similar symptoms previously: As bad. Diagnosis: CVA. Recent medical care: Not recently seen/assessed. REVIEW OF SYSTEMS No headache, head injury, chest pain, difficulty breathing or cough. No sputum production, sore throat, abdominal pain, nausea or diarrhea. No black stools, skin rash, enlarged lymph nodes, joint pain or vomiting. All systems otherwise negative, except as recorded above. PAST HISTORY ( Stage 4 lung CA Depression. Hyperlipidemia. Lung Cancer. Headache. CVA - Cerebrovascular Accident. Migraine Headache. Hypertension.). Medications: OxyCODONE HCl Oral. LORazepam Oral. Hyoscyamine Sulfate Oral. Haloperidol Oral. FentaNYL Transdermal. PARoxetine HCl Oral. Lisinopril Oral. Atorvastatin Calcium Oral. Aspirin Oral. Allergies: No Known Drug Allergy. None. SOCIAL HISTORY No alcohol use or drug use. ADDITIONAL NOTES The nursing notes have been reviewed. PHYSICAL EXAM Vital Signs: 01/15/2017 14:19 BP: 119/54. HR: 77. RR: 16. O2 saturation: 98%. Temp: 97.6 F. Appearance: Alert. No acute distress. Head: Head atraumatic. Eyes: Pupils equal, round and reactive to light. ENT: Normal ENT inspection. Airway intact. Pharynx normal. Neck: Normal inspection. Neck supple. CVS: Normal heart rate and rhythm. Heart sounds normal. Pulses normal. Respiratory: No respiratory distress. Breath sounds normal. Abdomen: Soft and nontender. Back: Normal inspection. Skin: Skin warm. Normal skin color. No rash. Extremities: Extremities exhibit normal ROM. No lower extremity edema. Neuro: Alert. Oriented X 3. Mood/affect normal. Mild dysarthria ([place] to be baseline by patient.). Cranial nerves normal (as tested). No cerebellar findings. No motor deficit. No sensory deficit. Reflexes normal. LABS, X-RAYS, AND EKG EKG: Normal sinus rhythm. Normal P waves. Normal CHUNG. Normal QRS complex. Q waves in lead III and aVF. Normal axis. Normal ST and T waves. The study has been interpreted contemporaneously. The study has been independently viewed by me. The EKG appears to be a good tracing. Chest X-ray: Normal Chest X-Ray. CT Head: (OLD CVA internal capsule on left. NO acute findings. No sign of mets.). Head CT performed without contrast. The study was independently viewed by me, interpreted by the radiologist and discussed with the radiologist. Laboratory Tests: CBC w Diff: (LEILANI: 01/15/2017 14:30) ( MsgRcvd 01/15/2017 14:41) Final results Test Result Flag Units (Reference) WHITE BLOOD COUNT 8.2 K/uL (4.5-11.5) RED BLOOD COUNT 4.35 M/uL (4.00-5.20) HEMOGLOBIN 13.3 gm/dL (12.0-16.0) HEMATOCRIT 40.4 % (36.0-46.0) MEAN CELL VOLUME 93 fL (80-100) MEAN CORPUSCULAR HGB 31 pg (26-34) MEAN CORPUSCULAR HGB CONC 33 g/dL (31-37) RED CELL DISTRIBUTION WIDTH 12.7 % (11.6-14.8) PLATELET COUNT 281 K/uL (150-400) NEUTROPHIL % 56.1 % (50-75) LYMPH % 35.7 % (25-40) MONO % 6.1 % (3-14) EOSINOPHIL % 1.6 % (0-4) BASOPHIL % 0.5 % (0-2) CHEM 13 PANEL: (LEILANI: 01/15/2017 14:30) ( MsgRcvd 01/15/2017 14:59) Final results Test Result Flag Units (Reference) GLUCOSE 122 H mg/dL (70-110) BUN 16 mg/dL (7-18) CREATININE 0.8 mg/dL (0.6-1.3) Estimated GFR >60 mL/min Estimated GFR- >60 mL/min Note: Persistent reduction over 3 months in eGFR<60 mL/min/1.73 m2 defines CKD. Patients with eGFR values>=60 mL/min/1.73 m2 may also have CKD if evidence ofpersistent proteinuria. Additional information may be foundat www.[email or web address].org. SODIUM 143 mmol/L (136-145) POTASSIUM 3.9 mmol/L (3.5-5.1) CHLORIDE 104 mmol/L (98-107) CARBON DIOXIDE 25 mmol/L (21-32) CALCIUM 9.8 mg/dL (8.5-10.1) TOTAL PROTEIN 8.0 g/dL (6.4-8.2) ALBUMIN 4.2 g/dL (3.3-5.0) BILIRUBIN, TOTAL 0.5 mg/dL (0.0-1.0) ALKALINE PHOSPHATASE 74 U/L (46-116) AST (SGOT) 35 U/L (15-37) ALT (SGPT) 50 U/L (12-78) CPK 43 U/L (24-260) MAGNESIUM 1.9 mg/dL (1.8-2.4) TROPONIN I <0.05 L ng/mL (0.00-1.5) TROPONIN REFERENCE RANGE:<0.1 NEGATIVE0.1-1.5 INDETERMINANT>1.5 POSITIVE . PROGRESS AND PROCEDURES Course of Care: 15:26 01/15/17. Pt repeat NIH stroke scale is 0. Pt has WEST and says poor pain control of her stage 4 lung cancer. She is only taking 1 percocet at times. she is instructed that she can take 2. She has a fentanyl patch. No sign of stroke or other significant process. Dilaudid 0.5 mg IV Zofran 4 mg Iv. Patient/family counseled. Disposition: Discharged. Condition: stable and improved. CLINICAL IMPRESSION CODE STROKE: NO evidence of CVA. Stage 4 lung cancer. INSTRUCTIONS No strenuous activity. Rest. (Remember that 5 of the medications you are on can cause drowsiness. If you become drowsy your speech can be slurred.). Warnings: Further evaluation is necessary. GENERAL WARNINGS: Return or contact your physician immediately if your condition worsens or changes unexpectedly, if not improving as expected, or if other problems arise. Your Current Medications: CONTINUE TAKING THE FOLLOWING MEDICATIONS: Aspirin Oral. Atorvastatin Calcium Oral. FentaNYL Transdermal. Haloperidol Oral. Hyoscyamine Sulfate Oral. Lisinopril Oral. LORazepam Oral. OxyCODONE HCl Oral. PARoxetine HCl Oral. Prescription Medications: Reglan 10 mg tablets: take 1 orally every 6 hours as needed for nausea or vomiting. Dispense fifteen (15). No refills. Substitution is permissible. Follow-up: Follow up with your doctor Wednesday in three days as scheduled. Understanding of the discharge instructions verbalized by patient. (Electronically signed by Kaleb Richards MD 01/21/2017 15:04)
--- NOTE | 2017-01-21 15:04 | ED MAR SUMMARY ---
..... Medication Administration Record [facility] [address] [place] [address] Patient: GWEN ANTOINE Visit ID: [id number] 66y, F Weight: 52.6 kg Height/Length: 62 in BMI: 21.2 ALLERGIES: None, No Known Drug Allergy Given 15:36 01/15/2017 Shahla Hu, Medication Administered: DILAUDID [IVP] (HYDROMORPHONE HCL PF), Dose: 0.5 mg IVP, Site: #1 left AC. Medication Ordered: Dilaudid IV 0.5 mg (NOW). Given 15:36 01/15/2017 Shahla Hu, Medication Administered: ZOFRAN [IVP] (ONDANSETRON HCL), Dose: 4 mg IVP, Site: #1 left AC. Medication Ordered: Zofran IV 4 mg (NOW). Given 16:50 01/15/2017 Shahla Hu, Medication Administered: REGLAN [IVP] (METOCLOPRAMIDE HCL), Dose: 10 mg IVP, Site: #1 left AC. Medication Ordered: Reglan IV 10 mg (NOW).
--- NOTE | 2017-01-21 15:04 | ED DISCHARGE INSTRUCTIONS ---
Patient: GWEN ANTOINE General Instructions [facility] VisitID: [id number] [address] [place] [address] 66y, F Registration Date/Time: 01/15/2017 CODE STROKE: NO evidence of CVA. Stage 4 lung cancer. INSTRUCTIONS No strenuous activity. Rest. (Remember that 5 of the medications you are on can cause drowsiness. If you become drowsy your speech can be slurred.). Warnings: Further evaluation is necessary. GENERAL WARNINGS: Return or contact your physician immediately if your condition worsens or changes unexpectedly, if not improving as expected, or if other problems arise. Your Current Medications: CONTINUE TAKING THE FOLLOWING MEDICATIONS: Aspirin Oral. Atorvastatin Calcium Oral. FentaNYL Transdermal. Haloperidol Oral. Hyoscyamine Sulfate Oral. Lisinopril Oral. LORazepam Oral. OxyCODONE HCl Oral. PARoxetine HCl Oral. Prescription Medications: Reglan 10 mg tablets: take 1 orally every 6 hours as needed for nausea or vomiting. Dispense fifteen (15). No refills. Substitution is permissible. Follow-up: Follow up with your doctor Wednesday in three days as scheduled. Understanding of the discharge instructions verbalized by patient. ADDITIONAL INFORMATION Metoclopramide Hydrochloride Oral tablet What is this medicine? METOCLOPRAMIDE (met oh kloe PRA mide) is used to treat the symptoms of gastroesophageal reflux disease (GERD) like heartburn. It is also used to treat people with slow emptying of the stomach and intestinal tract. How should I use this medicine? Take this medicine by mouth with a glass of water. Follow the directions on the prescription label. Take this medicine on an empty stomach, about 30 minutes before eating. Take your doses at regular intervals. Do not take your medicine more often than directed. Do not stop taking except on the advice of your doctor or health care consultant. A special MedGuide will be given to you by the pharmacist with each prescription and refill. Be sure to read this information carefully each time. Talk to your agriculture extension specialist regarding the use of this medicine in children. Special care may be needed. What side effects may I notice from receiving this medicine? Side effects that you should report to your doctor or health care consultant as soon as possible: allergic reactions like skin rash, itching or hives, swelling of the face, lips, or tongue abnormal production of milk in females breast enlargement in both males and females change in the way you walk difficulty moving, speaking or swallowing drooling, lip smacking, or rapid movements of the tongue excessive sweating fever involuntary or uncontrollable movements of the eyes, head, arms and legs irregular heartbeat or palpitations muscle twitches and spasms unusually weak or tired Side effects that usually do not require medical attention (report to your doctor or health care consultant if they continue or are bothersome): change in sex drive or performance depressed mood diarrhea difficulty sleeping headache menstrual changes restless or nervous What may interact with this medicine? acetaminophen cyclosporine digoxin medicines for blood pressure medicines for diabetes, including insulin medicines for hay fever and other allergies medicines for depression, especially an Monoamine Oxidase Inhibitor (MAOI) medicines for Parkinson's disease, like levodopa medicines for sleep or for pain tetracycline What if I miss a dose? If you miss a dose, take it as soon as you can. If it is almost time for your next dose, take only that dose. Do not take double or extra doses. Where should I keep my medicine? Keep out of the reach of children. Store at room temperature between 20 and 25 degrees C (68 and 77 degrees F). Protect from light. Keep container tightly closed. Throw away any unused medicine after the expiration date. What should I tell my health care provider before I take this medicine? They need to know if you have any of these conditions: breast cancer depression diabetes heart failure high blood pressure kidney disease liver disease Parkinson's disease or a movement disorder pheochromocytoma seizures stomach obstruction, bleeding, or perforation an unusual or allergic reaction to metoclopramide, procainamide, sulfites, other medicines, foods, dyes, or preservatives or trying to get breast-feeding What should I watch for while using this medicine? It may take a few weeks for your stomach condition to start to get better. However, do not take this medicine for longer than 12 weeks. The longer you take this medicine, and the more you take it, the greater your chances are of developing serious side effects. If you are an elderly patient, a female patient, or you have diabetes, you may be at an increased risk for side effects from this medicine. Contact your doctor immediately if you start having movements you cannot control such as lip smacking, rapid movements of the tongue, involuntary or uncontrollable movements of the eyes, head, arms and legs, or muscle twitches and spasms. Patients and their families should watch out for worsening depression or thoughts of suicide. Also watch out for any sudden or severe changes in feelings such as feeling anxious, agitated, panicky, irritable, hostile, aggressive, impulsive, severely restless, overly excited and hyperactive, or not being able to sleep. If this happens, especially at the beginning of treatment or after a change in dose, call your doctor. Do not treat yourself for high fever. Ask your doctor or health care consultant for advice. You may get drowsy or dizzy. Do not drive, use machinery, or do anything that needs mental alertness until you know how this drug affects you. Do not stand or sit up quickly, especially if you are an older patient. This reduces the risk of dizzy or fainting spells. Alcohol can make you more drowsy and dizzy. Avoid alcoholic drinks. You have been given the following additional information: Metoclopramide Hydrochloride Oral tablet No strenuous activity. Rest. (Electronically signed by Kaleb Richards MD 01/21/2017 15:04)
--- NOTE | 2017-01-21 15:04 | ED DISCHARGE INSTRUCTIONS ---
Patient: GWEN ANTOINE General Instructions [facility] VisitID: [id number] [address] [place] [address] 66y, F Registration Date/Time: 01/15/2017 CODE STROKE: NO evidence of CVA. Stage 4 lung cancer. INSTRUCTIONS No strenuous activity. Rest. (Remember that 5 of the medications you are on can cause drowsiness. If you become drowsy your speech can be slurred.). Warnings: Further evaluation is necessary. GENERAL WARNINGS: Return or contact your physician immediately if your condition worsens or changes unexpectedly, if not improving as expected, or if other problems arise. Your Current Medications: CONTINUE TAKING THE FOLLOWING MEDICATIONS: Aspirin Oral. Atorvastatin Calcium Oral. FentaNYL Transdermal. Haloperidol Oral. Hyoscyamine Sulfate Oral. Lisinopril Oral. LORazepam Oral. OxyCODONE HCl Oral. PARoxetine HCl Oral. Prescription Medications: Reglan 10 mg tablets: take 1 orally every 6 hours as needed for nausea or vomiting. Dispense fifteen (15). No refills. Substitution is permissible. Follow-up: Follow up with your doctor Wednesday in three days as scheduled. Understanding of the discharge instructions verbalized by patient. ADDITIONAL INFORMATION Metoclopramide Hydrochloride Oral tablet What is this medicine? METOCLOPRAMIDE (met oh kloe PRA mide) is used to treat the symptoms of gastroesophageal reflux disease (GERD) like heartburn. It is also used to treat people with slow emptying of the stomach and intestinal tract. How should I use this medicine? Take this medicine by mouth with a glass of water. Follow the directions on the prescription label. Take this medicine on an empty stomach, about 30 minutes before eating. Take your doses at regular intervals. Do not take your medicine more often than directed. Do not stop taking except on the advice of your doctor or health personal care attendant. A special MedGuide will be given to you by the pharmacist with each prescription and refill. Be sure to read this information carefully each time. Talk to your automatic nailing machine feeder regarding the use of this medicine in children. Special care may be needed. What side effects may I notice from receiving this medicine? Side effects that you should report to your doctor or health personal care attendant as soon as possible: allergic reactions like skin rash, itching or hives, swelling of the face, lips, or tongue abnormal production of milk in females breast enlargement in both males and females change in the way you walk difficulty moving, speaking or swallowing drooling, lip smacking, or rapid movements of the tongue excessive sweating fever involuntary or uncontrollable movements of the eyes, head, arms and legs irregular heartbeat or palpitations muscle twitches and spasms unusually weak or tired Side effects that usually do not require medical attention (report to your doctor or health personal care attendant if they continue or are bothersome): change in sex drive or performance depressed mood diarrhea difficulty sleeping headache menstrual changes restless or nervous What may interact with this medicine? acetaminophen cyclosporine digoxin medicines for blood pressure medicines for diabetes, including insulin medicines for hay fever and other allergies medicines for depression, especially an Monoamine Oxidase Inhibitor (MAOI) medicines for Parkinson's disease, like levodopa medicines for sleep or for pain tetracycline What if I miss a dose? If you miss a dose, take it as soon as you can. If it is almost time for your next dose, take only that dose. Do not take double or extra doses. Where should I keep my medicine? Keep out of the reach of children. Store at room temperature between 20 and 25 degrees C (68 and 77 degrees F). Protect from light. Keep container tightly closed. Throw away any unused medicine after the expiration date. What should I tell my health care provider before I take this medicine? They need to know if you have any of these conditions: breast cancer depression diabetes heart failure high blood pressure kidney disease liver disease Parkinson's disease or a movement disorder pheochromocytoma seizures stomach obstruction, bleeding, or perforation an unusual or allergic reaction to metoclopramide, procainamide, sulfites, other medicines, foods, dyes, or preservatives or trying to get breast-feeding What should I watch for while using this medicine? It may take a few weeks for your stomach condition to start to get better. However, do not take this medicine for longer than 12 weeks. The longer you take this medicine, and the more you take it, the greater your chances are of developing serious side effects. If you are an elderly patient, a female patient, or you have diabetes, you may be at an increased risk for side effects from this medicine. Contact your doctor immediately if you start having movements you cannot control such as lip smacking, rapid movements of the tongue, involuntary or uncontrollable movements of the eyes, head, arms and legs, or muscle twitches and spasms. Patients and their families should watch out for worsening depression or thoughts of suicide. Also watch out for any sudden or severe changes in feelings such as feeling anxious, agitated, panicky, irritable, hostile, aggressive, impulsive, severely restless, overly excited and hyperactive, or not being able to sleep. If this happens, especially at the beginning of treatment or after a change in dose, call your doctor. Do not treat yourself for high fever. Ask your doctor or health personal care attendant for advice. You may get drowsy or dizzy. Do not drive, use machinery, or do anything that needs mental alertness until you know how this drug affects you. Do not stand or sit up quickly, especially if you are an older patient. This reduces the risk of dizzy or fainting spells. Alcohol can make you more drowsy and dizzy. Avoid alcoholic drinks. You have been given the following additional information: Metoclopramide Hydrochloride Oral tablet No strenuous activity. Rest. (Electronically signed by Kaleb Richards MD 01/21/2017 15:04)
--- NOTE | 2017-01-21 15:04 | ED MED RECONCILIATION SUMMARY ---
Patient: GWEN ANTOINE Medication Reconciliation Report [facility] VisitID: [id number] [address] [place] [address] 66y, F Registration Date/Time: 01/15/2017 Weight: 52.6 kg Height/Length: 62 in. BMI: 21.2 ALLERGIES: No Known Drug Allergy, None The patient's Home Medications are listed below: CONTINUE TAKING THE FOLLOWING MEDICATIONS: Aspirin Oral Atorvastatin Calcium Oral FentaNYL Transdermal Haloperidol Oral Hyoscyamine Sulfate Oral Lisinopril Oral LORazepam Oral OxyCODONE HCl Oral PARoxetine HCl Oral The source(s) of the original Home Medication information: Not obtained. The following Medications were given to the patient in the Emergency Department: Zofran [IVP] IVP 4 mg, administered: 01/15/2017 3:36:00 PM Dilaudid [IVP] IVP 0.5 mg, administered: 01/15/2017 3:36:00 PM Reglan [IVP] IVP 10 mg, administered: 01/15/2017 4:50:00 PM The following Medications were prescribed to the patient: Reglan 10 mg tablets: take 1 orally every 6 hours as needed for nausea or vomiting. Dispense fifteen (15). No refills. Substitution is permissible. -- Kaleb Richards MD
--- NOTE | 2017-01-21 15:04 | ED MED RECONCILIATION SUMMARY ---
Patient: GWEN ANTOINE Medication Reconciliation Report [facility] VisitID: [id number] [address] [place] [address] 66y, F Registration Date/Time: 01/15/2017 Weight: 52.6 kg Height/Length: 62 in. BMI: 21.2 ALLERGIES: No Known Drug Allergy, None The patient's Home Medications are listed below: CONTINUE TAKING THE FOLLOWING MEDICATIONS: Aspirin Oral Atorvastatin Calcium Oral FentaNYL Transdermal Haloperidol Oral Hyoscyamine Sulfate Oral Lisinopril Oral LORazepam Oral OxyCODONE HCl Oral PARoxetine HCl Oral The source(s) of the original Home Medication information: Not obtained. The following Medications were given to the patient in the Emergency Department: Zofran [IVP] IVP 4 mg, administered: 01/15/2017 3:36:00 PM Dilaudid [IVP] IVP 0.5 mg, administered: 01/15/2017 3:36:00 PM Reglan [IVP] IVP 10 mg, administered: 01/15/2017 4:50:00 PM The following Medications were prescribed to the patient: Reglan 10 mg tablets: take 1 orally every 6 hours as needed for nausea or vomiting. Dispense fifteen (15). No refills. Substitution is permissible. -- Kaleb Richards MD
--- NOTE | 2017-01-21 15:04 | ED MAR SUMMARY ---
..... Medication Administration Record [facility] [address] [place] [address] Patient: GWEN ANTOINE Visit ID: [id number] 66y, F Weight: 52.6 kg Height/Length: 62 in BMI: 21.2 ALLERGIES: None, No Known Drug Allergy Given 15:36 01/15/2017 Shahla Hu, Medication Administered: DILAUDID [IVP] (HYDROMORPHONE HCL PF), Dose: 0.5 mg IVP, Site: #1 left AC. Medication Ordered: Dilaudid IV 0.5 mg (NOW). Given 15:36 01/15/2017 Shahla Hu, Medication Administered: ZOFRAN [IVP] (ONDANSETRON HCL), Dose: 4 mg IVP, Site: #1 left AC. Medication Ordered: Zofran IV 4 mg (NOW). Given 16:50 01/15/2017 Shahla Hu, Medication Administered: REGLAN [IVP] (METOCLOPRAMIDE HCL), Dose: 10 mg IVP, Site: #1 left AC. Medication Ordered: Reglan IV 10 mg (NOW).
== END 2017-01-15 17:03 | disposition home or self-care (01) ==
LOC: ED SRH 14:14
DX: C34.90 Malignant neoplasm of unspecified part of unspecified bronchus or lung (principal); I10 Essential (primary) hypertension; E78.5 Hyperlipidemia, unspecified; Z86.73 Personal history of transient ischemic attack (TIA), and cerebral infarction without residual deficits; Z79.82 Long term (current) use of aspirin; Z79.899 Other long term (current) drug therapy
CPT/HCPCS: 90004; 90074; 90100; 90469; 90616; 92610; 92720; 92760; 92761; 92762; 92763; 92764; 92765; 92766; 92767; 95059